=== PATIENT | male | born 1945 | race Caucasian/White ===

== ENCOUNTER 2024-01-29 14:00 | Emergency (ER) | payer MEDICARE, OTHER, SELFPAY ==
[2024-01-29 14:01] VITALS: BP 174/94
--- NOTE | 2024-01-29 15:12 | ED.GENMED ---
History of Present Illness
General
Chief Complaint: Dizziness
Time Seen by Provider: 01/29/24 14:53
History of Present Illness
History of Present Illness:
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 He states his
symptoms and fashion over the past month came significant. He is concerned he may be septic based on his prior presentation with endocarditis. He denies any vomiting or diarrhea. No objective fevers at home
Past History
Past History
ED Past Medical History: CAD, HTN, [place] and Other
ED Past Surgical History: Cardiac (Thoracic aortic aneurysm repair and aortic valvuloplasty)
Social History
Tobacco: Non-smoker
Alcohol: Daily
Personal:
Living: alone
Family History
Family History: Other (Noncontributory)
Review of Systems
Review of Systems
Allergies reviewed?: Yes
All Other Systems: ROS reviewed and negative except as documented in HPI and ROS
Phy Exam
Physical Exam
Physical Exam:
GEN: Well appearing, NAD, WDWN
Eyes: PERRLA, EOMs intact, no scleral icterus
HENT: NCAT, oral mucosa moist
Lungs: CTAB, no wheezes, rales, rhonchi, normal chest wall excursion
Cardiac: RRR, no M/R/G, no peripheral edema. Radial pulses 2+ bilat
Abdomen: S, NT, ND, NABS, no masses or hepatosplenomegaly
Neuro: AO x 3
MSK: No gross deformity or ecchymosis. No edema. No digital clubbing
Skin: No rashes, petechiae. Normal color, no pallor or jaundice.
Psych: Calm, cooperative, proper hygiene
Course
Orders/Labs/Results
Orders:
Orders
01/29/24 14:06
Electrocardiogram (*1) Urgent
Reason for Study: Fatigue / Weakness
EKG- Treatment ONCE
01/29/24 15:12
CR Chest - 2 Views Urgent
Comment:
Reason For Exam: weakness
01/29/24 15:37
Basic Metabolic Panel Urgent
COVID-19 Antigen Urgent
Source: Nasal Swab
Complete Blood Count/With Diff Urgent
Urinalysis Reflex To Culture Urgent
Date Specimen was Collected: 01/29/24
Time Specimen was Collected: 15:17
Abnormal Lab Results
01/29/24
15:37
WBC 4.7 L 10^3/uL
(4.8-10.8)
RBC 3.95 L 10^6/uL
(4.70-6.10)
Hct 38.0 L %
(39.0-52.0)
MCV 96.2 H fL
(80.0-94.0)
MCH 34.4 H pg
(27.0-31.0)
Absolute Lymphs (auto) 1.0 L 10^3/uL
(1.2-3.4)
Lymphocytes % 20.3 L %
(20.5-51.1)
Sodium 133 L mmol/L
(135-145)
Chloride 96 L mmol/L
(98-107)
Glucose 109 H mg/dl
(70-99)
Urine Ketones Trace A
(Negative)
01/29/24 15:37
01/29/24 15:37
Vital Signs
Initial and Last Documented VS:
Initial Vital Signs
Temp Pulse Resp BP Pulse Ox
97.3 F 65 18 174/94 99
01/29/24 14:01 01/29/24 14:01 01/29/24 14:01 01/29/24 14:01 01/29/24 14:01
Last Documented Vital Signs
Temp Pulse Resp BP Pulse Ox
97.3 F 70 16 134/74 98
01/29/24 14:01 01/29/24 17:20 01/29/24 17:20 01/29/24 17:20 01/29/24 17:20
MDM/Problems Addressed
MDM/Problems Addressed:
Patient's exam is unremarkable and labs are reassuring, mild leukopenia likely indicative of self-limited viral syndrome however given duration of symptoms ongoing for the past month with acute worsening will treat for acute bacterial rhinosinusitis
with a 5-day course of Augmentin.
*Critical Care Note
Total Time (30-74mins, 75-104mins- exclusive of procedures): Not Applicable
ED Attending Note
-
Portions of this chart may have been created with voice recognition software.� Occasional wrong word or��sound alike� substitutions may have occurred due to the inherent limitations of voice recognition software.
Discharge Plan
Departure
Patient Disposition: Home (Routine Discharge)
Date of Disposition: 01/29/24
Time of Disposition: 17:21
Patient with high blood pressure during this ER visit?: No
Discharge Problem:
Sinusitis
Instructions: Sinusitis in adults
Prescriptions:
New
amoxicillin-pot clavulanate 875-125 mg tablet
1 tab PO BID Qty: 10 0RF
No Action
atorvastatin 10 MG tablet
10 mg PO DAILY
lisinopril 10 MG tablet
10 mg PO DAILY
mirtazapine 7.5 MG tablet
7.5 mg PO HS
furosemide 40 MG/4 ML solution
40 mg IV DAILY 0RF
rifampin [Rifadin] 600 MG/10 ML recon soln
300 mg IV Q12H 0RF
acetaminophen 325 MG tablet
650 mg PO Q4HPRN PRN (Reason: mild pain/PEREZ/temp> 100.4F) 0RF
ipratropium-albuterol 3 ML solution for nebulization
3 ml inhalation R TID 0RF
ipratropium-albuterol 3 ML solution for nebulization
3 ml inhalation R Q4HPRN PRN (Reason: wheeze) 0RF
ondansetron HCl 4 MG tablet
4 mg PO Q8HPRN PRN (Reason: nausea/vomitting) 0RF
valacyclovir 500 MG tablet
500 mg PO TID 0RF
cefazolin 2 GRAMS/10 ML recon soln
2 grams IV Q6H 0RF
potassium chloride [Klor-Con M20] 20 MEQ tablet,ER particles/crystals
20 meq PO DAILY 0RF
pantoprazole 40 MG tablet,delayed release (DR/EC)
40 mg PO DAILY 0RF
atropine 0.1 MG/ML syringe
0.5 mg IV Q5MPRN PRN (Reason: symptomatic bradycardia) 0RF
alum-mag hydroxide-simeth [Mag-Al Plus] 30 ML suspension
30 ml PO QIDPRN PRN (Reason: GERD) 0RF
simethicone [Gas Relief 80 (simethicone)] 80 MG tablet,chewable
80 mg PO TIDPRN PRN (Reason: gas pain) 0RF
enoxaparin 40 MG/0.4 ML syringe
40 mg SC QPM 0RF
Saccharomyces boulardii 250 MG capsule
250 mg PO BID 0RF
gentamicin in NaCl (iso-osm) 60 MG/50 ML piggyback
60 mg IV Q8H 0RF
benzocaine-menthol [Cepacol Sore Throat (alejandro-men)] 1 MAYDA lozenge
1 mayda PO Q2HPRN PRN (Reason: SORE THROAT) 0RF
Referrals:
Miguel Neely MD [Family Provider] -
Interventions
Interventions:
*Risk Screen - Suicide Last Done: 01/29/24 14:01
*General Assessment Last Done: 01/29/24 14:01
*Neglect/Abuse Screening Last Done: 01/29/24 14:01
ED- Fall Risk Assessment Last Done: 01/29/24 17:20
*ED COVID-19 Vaccine History Last Done: 01/29/24 17:20
*Nursing Disposition Last Done: 01/29/24 17:20
ED- Neurological Assessment Last Done: 01/29/24 16:20
ED- Cardiac Assessment Last Done: 01/29/24 17:20
ED Swallowing Screen Last Done: 01/29/24 16:20
Discharge Date and Time
Discharge Date/Time: 01/29/24 17:20
Print Language: [facility] [place]
[2024-01-29 15:49] LABS: % Basophils 0.2 % (0-2); % Eosinophils 0.9 % (0-6); % Immature Granulocytes 0.2 % (0-0.5); % Lymphocytes 20.3 % (20.5-51.1); % Monocytes 6.4 % (1.7-9.3); Absolute Monocytes 0.3 10^3/uL (0.1-0.6); Absolute Neutrophils 3.4 10^3/uL (1.4-6.5); Hemoglobin 13.6 g/dL (13.0-18.0); Mean Corp Hgb Conc. 35.8 g/dL (33.0-37.0); Mean Corpuscular Hgb 34.4 pg (27.0-31.0); Mean Corpuscular Volume 96.2 fL (80.0-94.0); Mean Platelet Volume 9.1 fL (7.4-10.4); Nucleated Red Blood Cells % 0 % (-); Platelet Count 162 10^3/uL (130-400); Red Blood Cell Count 3.95 10^6/uL (4.70-6.10); Red Cell Dist. Width 11.9 % (11.5-14.5); White Blood Cell Count 4.7 10^3/uL (4.8-10.8)
[2024-01-29 16:11] LABS: COVID-19 Antigen Negative (Negative)
[2024-01-29 16:16] LABS: Blood Urea Nitrogen 19 mg/dl (9-20); Calcium 9.7 mg/dl (8.4-10.2); Carbon Dioxide 26 mmol/L (22-30); Chloride 96 mmol/L (98-107); Glucose 109 mg/dl (70-99); Sodium 133 mmol/L (135-145); eGFR > 60.00
[2024-01-29 17:08] LABS: Urine Albumin Negative (Neg - Trace); Urine Bilirubin Negative (Negative); Urine Character Clear (Clear); Urine Color Yellow; Urine Glucose Negative (Negative); Urine Ketone Trace (Negative); Urine Leukocyte Negative (Negative); Urine Nitrite Negative (Negative); Urine Occult Blood Negative (Negative); Urine Urobilinogen Negative (Neg - 1+)
[2024-01-29 17:20] VITALS: BP 134/74
== END 2024-01-29 17:20 | disposition home or self-care (01) ==
LOC: EMR 14:00
PROVIDERS: Physician Assistant; EMERGENCY PHYSICIAN Emergency Medicine; FAMILY PHYSICIAN Internal Medicine Geriatric Medicine
DX: J32.9 Chronic sinusitis, unspecified (principal); Z95.2 Presence of prosthetic heart valve; Z95.0 Presence of cardiac pacemaker; I25.10 Atherosclerotic heart disease of native coronary artery without angina pectoris; I10 Essential (primary) hypertension; I25.2 Old myocardial infarction
CPT/HCPCS: 99283; 71046; 80048; 81003; 85025; 87811; 93005